=== PATIENT | male | born 1940 | race Caucasian/White ===

== ENCOUNTER 2018-09-16 13:14 | Inpatient (IN) | payer OTHER ==
[~2018-09-16] VITALS: Ht 175.3 cm; Wt 55.8 kg
[2018-09-16] VITALS (26 sets, daily range): BP systolic 90–117; BP diastolic 57–72
[2018-09-16 13:33] LABS: BE(vivo) 7.9 mmol/L (-2 to +3); HCO3 30.7 mmol/L (22.0-26.0); PCO2 36.7 mmHg (35.0-45.0); PO2 57.9 mmHg (80.0-100.0); pH 7.541 (7.360-7.450); sO2 93.1 % (92.0-98.0)
[2018-09-16] MEDS ORDERED: ALBUTEROL2.5 MG/31 INH (13:51)
[2018-09-16] MEDS ORDERED: AMARYL2 MG PO (13:52)
[2018-09-16] MEDS ORDERED: TYLENOL EXTRA500 MG PO (13:52)
[2018-09-16] MEDS ORDERED: GLUCAGON HCL1 MG IM (13:53)
[2018-09-16 13:55] LABS: ABSOLUTE NEUTROPHILS 13.2 thou/uL (1.4-8.2); BASOPHILS 0.5 % (0.0-2.0); HEMATOCRIT 37.6 % (42.0-52.0); HEMOGLOBIN 11.8 gm/dL (14.0-18.0); LYMPHOCYTES 4.4 % (24.0-44.0); MCH 26.1 pg (26.0-34.0); MCHC 31.5 g/dL (28.0-37.0); MCV 82.7 fL (80.0-100.0); MONOCYTES 5.8 % (1.0-8.0); POLYS 89.3 % (36.0-66.0); RBC 4.54 mil/uL (4.50-6.00); RDW 16.1 % (10.5-14.5); WBC 14.8 thou/uL (4.0-11.0)
[2018-09-16 13:57] LABS: CALCIUM 8.6 mg/dL (8.5-10.1); CREATININE 1.4 mg/dL (0.7-1.3); POTASSIUM 3.1 mmol/L (3.5-5.1)
[2018-09-16 14:03] LABS: ALBUMIN 1.7 g/dL (3.4-5.0); TOTAL BILIRUBIN 0.4 mg/dL (<0.1-1.0); TOTAL PROTEIN 6.7 g/dL (6.4-8.2)
[2018-09-16 14:35] LABS: DIRECT BILIRUBIN 0.2 mg/dL (<0.1-0.3); LIPASE 484 U/L (73-393); TROPONIN-I <0.06 ng/mL (<0.06)
[2018-09-16 14:36] LABS: PLATELET COUNT 164 thou/uL (150-400)
[2018-09-16 14:37] LABS: APTT 32.8 Seconds (24.5-32.8); INR 1.3; PROTIME 13.5 Seconds (9.3-11.4)
[2018-09-16 14:48] LABS: URINE BILIRUBIN NEGATIVE (Negative); URINE BLOOD NEGATIVE (Negative); URINE CLARITY CLEAR; URINE COLOR YELLOW; URINE GLUCOSE-RANDOM* NEGATIVE (Negative); URINE KETONES TRACE (Negative); URINE LEUKOCYTES NEGATIVE (Negative); URINE NITRITE NEGATIVE (Negative); URINE PROTEIN (DIPSTICK) TRACE (Negative); URINE SPECIFIC GRAVITY >= 1.030 (1.005-1.035)
[2018-09-16 15:42] LABS: BE(vivo) 5.4 mmol/L (-2 to +3); HCO3 29.8 mmol/L (22.0-26.0); PCO2 42.8 mmHg (35.0-45.0); PO2 269.8 mmHg (80.0-100.0); sO2 99.7 % (92.0-98.0)
--- NOTE | 2018-09-16 16:19 | NUR ---
SPOKE WITH JANAE SHAVER., GUARDIAN OF PT, THIS NURSE AND DAVID POLLARD CONSENT TO TREAT
--- NOTE | 2018-09-16 18:00 | NUR ---
PT ADMITTED FROM ED SEPSIS PROTOCOL. LARGE BROWN STOOL CDIFF SEND BATH GIVEN. MRSA SENT . IVS RESTARTED. REPORT GIVEN TO ON COMING SHIFT.
--- NOTE | 2018-09-16 19:51 | NUR ---
CONSULTED TO PLACE A CENTRAL LINE FOR A PATIENT IN ICU ADMITTING WITH SEPSIS. ORDER AND CONSENT NOTED. PATIENT IS UNRESPOSIVE SO LETICIA GAVE CONSENT FOR PROCEDURE. THE RIGHT JUGULAR WAS WIDLEY PATENT. A #6F TRIPLE LUMEN JACC CENTRAL LINE WAS PLACED PER HOSPITAL POLICY AFTER A BEDSIDE TIMEOUT WAS COMPLETED. LINE WAS 25CM ADVANCED WITHOUT DIFFICULTY. A STAT CHEST XRAY WAS ORDERED FOR CONFIRMATION
[2018-09-16 20:37] LABS: CALCIUM 8.2 mg/dL (8.5-10.1); CREATININE 1.3 mg/dL (0.7-1.3); POTASSIUM 3.2 mmol/L (3.5-5.1)
[2018-09-17] VITALS (34 sets, daily range): BP systolic 94–109; BP diastolic 51–63
[2018-09-17 00:34] LABS: CALCIUM 7.7 mg/dL (8.5-10.1); POTASSIUM 3.2 mmol/L (3.5-5.1)
[2018-09-17 05:17] LABS: ABSOLUTE NEUTROPHILS 9.4 thou/uL (1.4-8.2); BASOPHILS 0.5 % (0.0-2.0); EOSINOPHILS 0.1 % (0.0-3.0); HEMATOCRIT 28.9 % (42.0-52.0); HEMOGLOBIN 9.3 gm/dL (14.0-18.0); LYMPHOCYTES 8.2 % (24.0-44.0); MCH 26.7 pg (26.0-34.0); MCV 83.2 fL (80.0-100.0); MONOCYTES 5.1 % (1.0-8.0); PLATELET COUNT 124 thou/uL (150-400); POLYS 86.1 % (36.0-66.0); RBC 3.47 mil/uL (4.50-6.00); RDW 15.9 % (10.5-14.5); WBC 10.9 thou/uL (4.0-11.0)
[2018-09-17 05:30] LABS: BE(vivo) 4.4 mmol/L (-2 to +3); HCO3 29.5 mmol/L (22.0-26.0); PCO2 45.8 mmHg (35.0-45.0); PO2 95.6 mmHg (80.0-100.0); pH 7.427 (7.360-7.450); sO2 97.4 % (92.0-98.0)
[2018-09-17 05:46] LABS: CALCIUM 7.8 mg/dL (8.5-10.1); CREATININE 0.9 mg/dL (0.7-1.3); POTASSIUM 3.4 mmol/L (3.5-5.1)
--- NOTE | 2018-09-17 06:14 | NUR ---
ASSUMED CARE @ 1900 09/16/18, PT ASSESSMENTS AND VSS COMPLETE PER ICU PROTOCOL. PT NOT ABLE TO FOLLOW COMMANDS, PT INITIAL GCS WAS 4, MTN CALLED, MTN # [id number], AT LAST ASSESSMENT, PT ABLE TO FLEX FROM PAIN, PT MOVING FEET BUT NOT TO COMMAND, BOTH EYES DEVIATE TO THE RIGHT CORNERS OF THE EYE SOCKETS. GAG REFLEX, CORNEAL REFLEX AND COUGH PRESENT. PT BP SOFT BUT STABLE, TEMP LOW @ 95.7, WARMING BLANKET IN PLACE, PRESENT TEMP 96.6, PT SR-ST ON THE MONITOR. PEG IN PLACE, BS HIGH MOST OF THE NIGHT, RN HESITANT TO START INSULIN DRIP DUE TO HYPOKALEMIA, K WAS 3.2 INITIALLY, CHAS CALLED TO REPLACE K, NEW ORDERS RECIEVED. HERNANDEZ IN PLACE, PT MAKING 30-35ML/HR. SACRAL ULCER PRESENT, PICTURE TAKEN, WOUND CARE CONSULT PLACED. PLAN OF CARE- CONT TO MONITOR.
--- NOTE | 2018-09-17 09:52 | NUR ---
When ready to resume enteral nutrition, recommend glucerna 1.2 at goal of 60ml/hr
--- NOTE | 2018-09-17 14:20 | NUR ---
DISCHARGE PLANNING. FDC CARE PLACEMENT NEEDED AT DISCHARGE. PER PATIENTS PUBLIC FLY MAKER, JANAE SHAVER, REFERRAL FOR LTC PLACEMENT TO BE FAXED TO [facility] IN [place], [place]. CALL PLACED TO [facility] ADMISSIONS. SPOKE WITH [facility] TO DISCUSS REFERRAL AND PATIENTS DISCHARGE NEEDS. [facility] CONFIRMS THAT THEY DO ACCEPT TRACH PATIENTS. REFERRAL FAXED TO [facility], VERIFIED RECEIVED. [facility] TO REVIEW AND CONTACT CM ONCE COMPLETE. UNIT CM/SW AWARE. FOLLOWING TO ASSIST WITH DISCHARGE NEEDS. [facility] CONTACT NUMBER IS [phone] FAX [phone]
--- NOTE | 2018-09-17 15:41 | NUR ---
INITIAL ASSESSMENT: Received consult due to pt not having a support system. DANIEL reviewed chart and spoke with nursing and attending physician. Pt was admitted from [facility] due to aspiration pneumonia/sepsis. Pt is currently on the ventilator. Receiving IV abx: vanco/zosyn. Pt unable to communicate. Pt is a mckeon of the state through [facility] Public Cnc Machine Programmer's office. DANIEL spoke with Trav Oliva, telephonic case manager with the [place] office to provide update. Trav was aware of pt's admission. Per Trav, pt has been to [facility] for about a week. Prior to [facility], he was at [facility]. Pt with trach in place due to chronic respiratory failure. Pt also has peg tube in place. Trav requests referral to be sent to [facility] in [place]--[address] [place] [phone] ). corporate event planner faxed referral and confirmed they are able to accept pts with trachs. Will send updates to [facility] on Thursday. DANIEL requested guardianship ppwk to be faxed from [place] office to place on pt's chart. DANIEL updated [facility] liaison. DANIEL is following to assist as needed with discharge planning.
--- NOTE | 2018-09-17 17:44 | NUR ---
WOUND CONSULT: PT. WAS SEEN TODAY BY DR. MCELROY AND MYSELF. PT. HAS MULTIPLE WOUNDS AT THIS TIME. SACRUM-STAGE 3 RIGHT HEEL-STAGE 3 LEFT HEEL-UNSTAGEABLE RIGHT HIP-DEEP TISSUE INJURY RECOMMENDATIONS: CONTINUE WITH CURRENT PLAN OF CARE. PT. AND STAFF NURSE WERE INSTRUCTED ON PLAN OF CARE.
--- NOTE | 2018-09-17 19:44 | NUR ---
end of shift note. pt improving neurologically. VSS. wound care done. mod amt of secretions. Did not tolorate SIMV
[2018-09-18] VITALS (24 sets, daily range): BP systolic 114–134; BP diastolic 48–89
[2018-09-18 05:32] LABS: BE(vivo) 1.4 mmol/L (-2 to +3); HCO3 26.2 mmol/L (22.0-26.0); PCO2 42.3 mmHg (35.0-45.0); PO2 89.5 mmHg (80.0-100.0); sO2 96.9 % (92.0-98.0)
[2018-09-18 06:22] LABS: ABSOLUTE NEUTROPHILS 7.4 thou/uL (1.4-8.2); BASOPHILS 0.3 % (0.0-2.0); EOSINOPHILS 0.2 % (0.0-3.0); HEMATOCRIT 27.4 % (42.0-52.0); HEMOGLOBIN 8.6 gm/dL (14.0-18.0); MCH 26.4 pg (26.0-34.0); MCHC 31.3 g/dL (28.0-37.0); MCV 84.5 fL (80.0-100.0); MONOCYTES 4.1 % (1.0-8.0); PLATELET COUNT 125 thou/uL (150-400); POLYS 86.4 % (36.0-66.0); RBC 3.24 mil/uL (4.50-6.00); RDW 15.9 % (10.5-14.5); WBC 8.6 thou/uL (4.0-11.0)
[2018-09-18 06:27] LABS: CALCIUM 8.1 mg/dL (8.5-10.1); CREATININE 0.7 mg/dL (0.7-1.3)
[2018-09-18 06:33] LABS: POTASSIUM 2.8 mmol/L (3.5-5.1)
[2018-09-18 06:59] LABS: LARGE PLATELETS OCCASIONAL
--- NOTE | 2018-09-18 07:00 | NUR ---
No significant changes observed through the night. VS stable and SpO2 adequate on current vent settings. PRN oxycodones given for increased restlessness and occasional grimacing with desired effect achieved. Urine output marginal for shift. Am lab and ABG results noted, continue with POC.
[2018-09-18 09:13] LABS: BE(vivo) 3.4 mmol/L (-2 to +3); HCO3 28.3 mmol/L (22.0-26.0); PCO2 45.1 mmHg (35.0-45.0); PO2 86.1 mmHg (80.0-100.0); pH 7.416 (7.360-7.450); sO2 96.6 % (92.0-98.0)
[2018-09-18 12:16] LABS: BE(vivo) -0.5 mmol/L (-2 to +3); PCO2 38.6 mmHg (35.0-45.0); PO2 104.6 mmHg (80.0-100.0); pH 7.411 (7.360-7.450); sO2 97.9 % (92.0-98.0)
--- NOTE | 2018-09-18 17:51 | NUR ---
PT REMAINS UNCOMMUNICATIVE AND NO FOLLOW OF COMMANDS - VSS - TOLERATING BEING OFF VENTILATOR /S S/S OF DISTRESS
--- NOTE | 2018-09-18 18:21 | EKG ---
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 : 1940 Requested By: Nicola Bryan Order Number: [id number] MD: Justen Mckeon Measurements Intervals [place] Rate: 127 P: -46 NC: 102 QRS: -46 QRSD: 79 T: 89 QT: 400 QTc: 582 Interpretive Statements Sinus or ectopic atrial tachycardia Inferior infarct, old Nonspecific ST-T wave changes Voltage criteria for LVH No previous ECG available for comparison Electronically Signed On 09-18-2018 18:20:50 CDT by Justen Mckeon [email or web address] ��������������������������������������������� <ELECTRONICALLY SIGNED> ���������������������������������������� By: Justen Mckeon MD ��������������������������������������������� 09/18/18 1820 132 132 Justen Mckeon MD /EPI
[2018-09-19] VITALS (24 sets, daily range): BP systolic 113–162; BP diastolic 65–99
[2018-09-19 04:43] LABS: ABSOLUTE NEUTROPHILS 6.4 thou/uL (1.4-8.2); BASOPHILS 0.7 % (0.0-2.0); EOSINOPHILS 0.7 % (0.0-3.0); HEMATOCRIT 28.5 % (42.0-52.0); HEMOGLOBIN 8.9 gm/dL (14.0-18.0); LYMPHOCYTES 10.9 % (24.0-44.0); MCH 26.2 pg (26.0-34.0); MCHC 31.3 g/dL (28.0-37.0); MCV 83.7 fL (80.0-100.0); MONOCYTES 4.9 % (1.0-8.0); PLATELET COUNT 156 thou/uL (150-400); POLYS 82.8 % (36.0-66.0); RBC 3.41 mil/uL (4.50-6.00); RDW 16.1 % (10.5-14.5); WBC 7.7 thou/uL (4.0-11.0)
[2018-09-19 05:06] LABS: CALCIUM 7.9 mg/dL (8.5-10.1); CREATININE 0.6 mg/dL (0.7-1.3)
--- NOTE | 2018-09-19 05:11 | NUR ---
Patient making progress towards outcome goals. Oxygenation optimal with 35% oxygen per trach shield. Coughing up with good effort thick white to pale yellow secretions. Does requires tracheal suctioning about every 2-3 hours. Low grade temp 99 ax. IVFluids infusing. Good urine output. Brown liquid stool from fecal management system. Lateral bed rotation on.
--- NOTE | 2018-09-19 06:17 | NUR ---
K 3.o, replacement in progress per protocol.
--- NOTE | 2018-09-19 12:09 | NUR ---
REMAINS NON COMMUNICATIVE. TURNED EVERY 2 HOURS. HERNANDEZ TO DD CLEAR YELLOW URINE OUT. FECAL MANAGEMENT SYSTEM WITH BROWN LIQUID STOOL. TUBE FEEDING STARTED VIA PEG AT 20CC HR WITH A GOAL RATE OF 60. NO RESIDUAL AT START OF TF. LEFT TRIPLE LUMEN IJ INTACT. O2 AT 35% TRACH SHIELD. SUCTIONED EVERY TWO HOURS WITH MOD AMT FROTHY WHITE SPUTUM GOOD COUGH EFFORT.
[2018-09-19 23:42] LABS: MAGNESIUM 1.6 mg/dL (1.8-2.4)
[2018-09-19 23:48] LABS: POTASSIUM 2.9 mmol/L (3.5-5.1)
[2018-09-20] VITALS (12 sets, daily range): BP systolic 125–159; BP diastolic 70–94
--- NOTE | 2018-09-20 06:00 | NUR ---
PT REMAINS TRACHED AND NOVERBAL. VSS SINUS RHYTHM. SUCTIONED FOR A MOD AMT THICK BEIGE SPUTUM. DRESSINGS INTACT. BATHED. WORKING TO GET PT TX TO [facility] THIS WEEK. BATHED. REPOSITIONED. WILL CONT TO MONITOR.
[2018-09-20 06:15] LABS: HEMATOCRIT 29.3 % (42.0-52.0); HEMOGLOBIN 9.4 gm/dL (14.0-18.0); MCH 26.1 pg (26.0-34.0); MCHC 32.1 g/dL (28.0-37.0); MCV 81.3 fL (80.0-100.0); RBC 3.61 mil/uL (4.50-6.00); RDW 16.4 % (10.5-14.5); WBC 5.6 thou/uL (4.0-11.0)
[2018-09-20 06:26] LABS: CALCIUM 8.1 mg/dL (8.5-10.1); CREATININE 0.6 mg/dL (0.7-1.3); POTASSIUM 3.1 mmol/L (3.5-5.1)
--- NOTE | 2018-09-20 10:31 | NUR ---
Nutrition: If able to D/C IVFs rec administer Maximus BID in 240 mL H20 flushes to assist with wound healing needs.
--- NOTE | 2018-09-20 10:38 | NUR ---
DANIEL reviewed chart and spoke with attending physician. Pt is off the ventilator and tolerating trach shield. Pt is on IV abx: zosyn due to positive blood cultures. DANIEL received call from Alina ([phone]) at [facility] requesting clinical updates. DANIEL faxed updates from the weekend. DANIEL updated Trav Oliva at [facility] office. DANIEL is following to assist as needed with discharge planning.
--- NOTE | 2018-09-20 12:04 | HC ---
[facility] [place] [address] CONSULTATION Name: STARR SHARP Room #: [facility] IN M.R.#: [id number] Admission: 09/16/18 ������������������ Attend Phys: Kye Stevenson MD Discharge: ������������������ Date of : 40 Report #: [id number] THIS REPORT FOR: //name// CC: Kye Hill Akkulugari DATE OF SERVICE: 09/17/2018 INFECTIOUS DISEASES CONSULTATION REASON FOR CONSULTATION: Evaluation concerning septic shock and pneumonia. HISTORY OF PRESENT ILLNESS: The patient is a 78-year-old [facility]p resident, who is in a chronic vegetative state, who presents to the Emergency Room with nausea, vomiting, coffee-ground emesis and respiratory failure. He has a longstanding tracheostomy, was intubated and he was placed on the ventilator. He has had a moderate amount of tracheal secretions. He now has an indwelling Blanco catheter. He was placed in the Intensive Care Unit. He is on [employer] throughout the night. He received several liters of IV fluids. He has decreased urine output. Right IJ catheter was placed. He does move some of his extremities spontaneously, but not to command. He was unable to give any further details. He was incontinent of liquid stool. He now has a rectal tube in place. He had pressure wounds to his coccyx and to his right hip greater trochanter region. He had a PEG tube. REVIEW OF SYSTEMS: Ten-point review of systems unable to obtain because of the patient's condition. ALLERGIES: None known. MEDICATIONS: Included vancomycin, Zosyn, Levaquin in addition to those as noted on his MAR. Unclear as to his past medical history. He was on glimepiride, so he has likely got some diabetic history. SOCIAL HISTORY: He is a [facility] resident. Unclear if he has smoked or drank. Unclear why he has a tracheostomy. PHYSICAL EXAMINATION: VITAL SIGNS: Currently afebrile with temperature 97.1, heart rate 106, respiratory rate 27, blood pressure 99/51. He is on 30% FiO2 to his tracheostomy. GENERAL: He was thin stature. He was markedly debilitated. He was unresponsive to verbal or painful stimuli. HEENT: His eyes were deviated to the right with nystagmus present. He had [facility] [address] [place] [address] CONSULTATION Name: STARR SHARP Room #: [address] [place] [address] [place] .R.#: [id number] Admission: 09/16/18 ������������������ Attend Phys: Kye Stevenson MD Discharge: ������������������ Date of : 40 Report #: [id number] cataracts. Sclerae nonicteric. Mouth without lesion. Tracheostomy without drainage or erythema. Right IJ catheter in place with no erythema. SKIN: With unstageable wounds to his coccyx and his right greater trochanter. There was no fluctuance. LUNGS: Were coarse, mostly on the right side. HEART: Regular without murmur, gallop or rub. He was tachycardic. ABDOMEN: Soft, did not appreciate any masses or hepatosplenomegaly. His PEG site was without drainage or erythema. GENITOURINARY: External genitalia without mass. He had indwelling Blanco catheter. Rectal tube in place with liquid stool present. Some leakage of stool around the tubing. EXTREMITIES: Without cyanosis or clubbing. No peripheral edema. He had increased muscle tone throughout. Was able to move all of his extremities. NEUROLOGIC: Cranial nerves unable to fully assess. PSYCHIATRIC: Unable to assess mood. LABORATORY STUDIES: C. diff PCR negative. MRSA screen negative. Blood cultures are negative to date. Chest x-ray with right lower lobe, middle lobe atelectasis, infiltrate with associated effusion. Lactate 1.1. ABG on 40% showed a pO2 of 95, pCO2 of 45, pH 7.4, bicarbonate 29. Sodium 143, potassium 3.2, bicarbonate 33, creatinine 1. Procalcitonin 3.3. Urinalysis unremarkable. Hemoglobin 11.8, platelet count 164,000, white count 14.8 with 89% neutrophils. Liver function test normal. Lipase 484. Troponin negative. IMPRESSION: 1. A 78-year-old with right lower lobe pneumonia, respiratory failure, severe sepsis, coffee-ground emesis with only mild anemia. I am suspecting aspiration pneumonia, unclear why he has a tracheostomy. Likely, he has a component of chronic obstructive pulmonary disease. I did not see any evidence of mass lesion on his chest x-ray. 2. Acute kidney injury, improved. 3. Encephalopathy, chronic vegetative state. 4. Malnutrition. RECOMMENDATIONS: We will continue broad antibiotic coverage with Zosyn. The patient was MRSA screen negative. Control blood glucose levels. Nutritional support. The patient is a mckeon of the formerly [facility]. We will continue full support pending any further instruction. The patient is definitely at risk for further complications and will require ICU support. I have discussed in detail with nursing staff at the bedside. He will also continue with pressure relief regarding his sacrum and his right greater trochanter. ��������������������������������������������� <ELECTRONICALLY SIGNED> ���������������������������������������� By: Joaquin Rao MD ��������������������������������������������� 09/20/18 1204 [id number] [id number] Joaquin Rao MD /nt
--- NOTE | 2018-09-20 15:30 | NUR ---
VASCULAR ACCESS ROUNDING- PATIENT REMAINS IN ICU ON IV ANTIBIOTICS AND ELECTROLYTE REPLACEMENT. THIS PATIENT HAS POOR PERIPHERAL VASCULAR. WE WILL CONTINUE TO FOLLOW ID NOTES TO SEE HOW MUCH LONGER ANTIBIOTICS WILL BE NECESSARY
--- NOTE | 2018-09-20 17:02 | NUR ---
WOUND FOLLOW UP: PT. WAS SEEN TODAY BY DR. MCELROY AND MYSELF. PT. WOUNDS ARE STABLE. RECOMMENDATIONS: CONTINUE WITH CURRENT PLAN OF CARE. PT. AND STAFF NURSE WERE INSTRUCTED ON PLAN OF CARE.
--- NOTE | 2018-09-20 18:57 | NUR ---
1814 - REPORT CALLED TO ATUL DICKERSON - PT TRANSFERRED TO BED 416 WITH RN/TECH
--- NOTE | 2018-09-21 04:57 | NUR ---
PATIENT UNRESPONSIVE. HAS HERNANDEZ WITH YELLOW URINE WITH SEDIMENT. PEG TUBE WITH GLUCERNA 1.2 AT 60ML/HR WITH NO RESIDUAL. FECAL TUBE. IV IN R I. TRIPLE LUMEN. REMAIN IN ISOLATION FOR MRSA IN SPUTUM.
[2018-09-21 05:33] VITALS: BP 159/80
[2018-09-21 08:15] VITALS: BP 156/90
--- NOTE | 2018-09-21 09:50 | NUR ---
DANIEL reviewed chart and spoke with nursing. Pt was transferred to from ICU and is progressing towards goals for discharge. SW awaiting call back from [facility] regarding referral to see if they are able to accept pt. DANIEL discussed with Trav Oliva with [facility] office, who states SW should hear back from Alina at [facility]. Should [facility] not be able to accept pt, referral can be sent to [facility] in [place]. Pt can return to [facility] if these facilities are unable to accept. habitat conservation planner to follow up with [facility]. DANIEL is following to assist as needed with discharge planning.
--- NOTE | 2018-09-21 10:09 | NUR ---
car rental sales assistant called Alina/young at [facility] in [facility] regarding patient who will be ready to discharge today. Alina confirmed they received faxed updates sent yesterday and she will let us know in about an hour or so if they can accept patient. Alina asked if patient will need to be in a locked down unit, he will not as he is not able to ambulate.
--- NOTE | 2018-09-21 10:19 | NUR ---
S/W JANAE SHAVER IN PUBLIC ADM. OFFICE AND COMPLETED REQUEST FOR DNR PAPERWORK. FAXED THIS TO PUBLIC ADM OFFICE FOR JANAE TO REVIEW AND AWAITING RESPONSE BACK.
--- NOTE | 2018-09-21 13:41 | NUR ---
ASSUMED CARE AT 0700, SHIFT ASSESSMENT DONE, MEDS GIVEN VIA PEG TUBE. REMAINS UNRESPONSIVE, ON TRACHE. PEG TUBE FEEDING. GETTING FLUIDS AND IV ANTIBIOTICS. Q2 TURN DIRECTED, HERNANDEZ AND FECAL MANAGEMENT SYSTEM IN PLACE. REMAINS NPO. WILL CONTINUE TO ASSESS AND ASSIST WITH ADLs NEEDED.
[2018-09-21 14:00] VITALS: BP 148/80
--- NOTE | 2018-09-21 14:52 | NUR ---
PATIENT REMAINS UNRESPONSIVE AND OPENS EYES SIMULTANEOUSLY. WOUND REMAINS COVERED. PT TURNED Q2H AND WEARS SCDs BILATERALLY DUE TO IMMOBILITY. PT RECEIVED A BREATHING TREATMENT AND WAS SUCTIONED THIS MORNING BUT CONTINUES TO SOUND CONGESTED. PT HAS A RECTAL TUBE THAT IS BECOMING INEFFECTIVE, LEADING TO EPISODES OF INCONTINENCE/LOSS OF BOWELS IN BED. SOCIAL WORK IS CURRENTLY TRYING TO FIND A FACILITY FOR THE PATIENT TO BE DISCHARGED TO.
--- NOTE | 2018-09-21 15:23 | NUR ---
I have reviewed and concur with student documentation.
--- NOTE | 2018-09-21 16:36 | NUR ---
WOUND FOLLOW UP: PT. WAS SEEN TODAY BY DR. MCELROY AND MYSELF. PT. WOUNDS ARE CLINICALLY BETTER AT THIS TIME. RECOMMENDATIONS: CONTINUE WITH CURRENT PLAN OF CARE. PT. AND STAFF NURSE WERE INSTRUCTED ON PLAN OF CARE.
[2018-09-21 17:41] VITALS: BP 161/75
--- NOTE | 2018-09-21 18:47 | NUR ---
RUNNING A TEMP, OXYCODONE WITH TYLENOL GIVEN. Q2 TURNS PERFORMED DIRECTED.
[2018-09-21 21:00] VITALS: BP 122/58
[2018-09-22 05:59] VITALS: BP 137/80
--- NOTE | 2018-09-22 07:41 | NUR ---
ASSUMED PT CARE 1899. PT NONVERBAL/NONRESPONSIVE. FECAL MANAGEMENT TUBE, FOLAEY, PEG TUBE IN PLACE. FEVER TREATED, SEE EMAR. TRACH IN PLACE. FREQUENT ROUNDING. CLOSLY MONITOREING VITAL SIGSN. REPORT GIVEN TO AM NURSE.
[2018-09-22 07:53] VITALS: BP 152/66
--- NOTE | 2018-09-22 08:04 | NUR ---
Tube feeding followup: BG are elevated possible with extra D5 fluids. Hypernatremia has resolved. Recommend discontinue D5 and start water flush of 240ml every 6hr. Add 1 packet natalya bid.
--- NOTE | 2018-09-22 10:03 | NUR ---
DANIEL reviewed chart. DANIEL followed up with [facility] Facility liaison, who will review clinical info and discuss with team. DANIEL received call from Jennifer at [facility] stating they would like updates. DANIEL informed Jennifer that pt is off the ventilator and on trach shield. traffic and transport planner faxed updates to [facility]. DANIEL updated Trav Oliva at [facility] [place] office. DANIEL is following to assist as needed with discharge planning.
[2018-09-22] MEDS ORDERED: DURAGESIC1 EAC4 TRANSDERM (11:18)
--- NOTE | 2018-09-22 11:41 | NUR ---
S/W JANAE SHAVER AND HE WILL FAX BACK DNR ORDER ONCE IT IS COMPLETED TODAY. DR GALVIN HERE THIS AM REQUESTING HOSPICE EVAL. JANAE SHAVER FROM PUBLIC ADM. OFFICE IN AGREEMENT TO THIS AND HE REQUESTS REFERRAL TO [facility].
--- NOTE | 2018-09-22 14:28 | HC ---
[facility] [place] [address] CONSULTATION Name: STARR SHARP Room #: 419-P [facility] IN M.R.#: [id number] Admission: 09/16/18 ������������������ Attend Phys: Kye Stevenson MD Discharge: ������������������ Date of : 40 Report #: [id number] THIS REPORT FOR: //name// CC: Kye Hill Akkulugari DATE OF SERVICE: 09/17/2018 CHIEF COMPLAINT: Multiple pressure ulcerations. HISTORY OF PRESENT ILLNESS: This is a 78-year-old male patient who was admitted to [facility] from a care facility with worsening shortness of breath. He was unable to maintain respiratory status, was intubated due to respiratory distress. He is sedated or had decreased level of responsiveness on the ventilator, not able to provide any information about himself. He has multiple pressure ulcerations for which I have been asked to see him. PAST MEDICAL HISTORY: Diabetes mellitus, aspiration pneumonia, respiratory failure, septic shock. ALLERGIES: None. MEDICATIONS: Albuterol, glimepiride, glucagon, acetaminophen. SOCIAL HISTORY: Negative for alcohol or tobacco use. FAMILY HISTORY: Unknown. REVIEW OF SYSTEMS: Unobtainable due to the patient's unresponsive state. PHYSICAL EXAMINATION: VITAL SIGNS: At this time include temperature 99.6, pulse 106, respiration 27, blood pressure 101/52. GENERAL: This is a chronically ill-appearing male patient who appears to be somnolent on a respirator. HEENT: Head normocephalic. Nose is clear. Throat demonstrates oral tracheal tube in place. LUNGS: Diminished. HEART: Regular. ABDOMEN: Soft. Bowel sounds present. EXTREMITIES: Demonstrates stage 3 pressure ulceration to the right heel, small amount of bleeding tissue. Some callus and eschar present. There is an unstageable pressure ulcer to the left heel with a mixture of thick callus and eschar present. Stage 3 pressure ulceration of the sacrum, which appears to be relatively superficial without evidence of infection. He has a deep tissue injury to his right hip. [facility] [address] [place] [address] CONSULTATION Name: ARONSTARR Room #: 419-[facility] IN M.R.#: [id number] Admission: 09/16/18 ������������������ Attend Phys: Kye Stevenson MD Discharge: ������������������ Date of : 40 Report #: [id number] NEUROLOGIC: The patient is somnolent and does not respond to verbal stimuli. LABORATORY DATA: Includes sodium 147, potassium 3.4, chloride 110, CO2 31, BUN 36, creatinine 0.9, glucose 142. Albumin is low at 1.7. White blood cell count is 10.9 with a hemoglobin of 9.3. CLINICAL IMPRESSION: 1. Stage 3 pressure ulceration of the right heel, unstageable pressure in the left heel, stage 3 pressure ulcer of the sacrum and deep tissue injury to the right hip. 2. Respiratory failure, requiring mechanical ventilation. 3. Diabetes mellitus. 4. Severe protein-calorie malnutrition with albumin 1.7. RECOMMENDATIONS: At this point in time, the patient would need to be placed on low air loss mattress and keep turning and repositioning, PRAFO boots to both lower extremities. ��������������������������������������������� <ELECTRONICALLY SIGNED> ���������������������������������������� By: Charly Pryor MD ��������������������������������������������� 09/22/18 1428 0857 0105 Charly Pryor MD /nt
--- NOTE | 2018-09-22 14:46 | NUR ---
WOUND FOLLOW UP: PT. WAS SEEN TODAY BY DR. MCELROY AND MYSELF. PT. WOUNDS ARE SHOWING SIGNS OF CLINICAL IMPROVEMENT. RECOMMENDATIONS: CONTINUE WITH CURRENT PLAN OF CARE. PT. AND STAFF NURSE WERE INSTRUCTED ON PLAN OF CARE.
[2018-09-22 16:38] VITALS: BP 131/64
[2018-09-22 19:20] VITALS: BP 115/65
--- NOTE | 2018-09-22 19:29 | NUR ---
Assumed pt care at 7am.Pt in bed sleeping on and off.Turned and repositioned q2h in bed for comfort.Dr Whelan here and new order noted.Pt now on hospice care [facility]qualitative field project manager called public legal office administrator for code status to be change to no code.Still waiting for the paperwork.Tube feeding continue with q4h water flushes. Adequate urine output noted per carter catheter.Report off to noc rn.
[2018-09-23 03:35] VITALS: BP 116/62
--- NOTE | 2018-09-23 03:44 | NUR ---
Assumed care of pt at 1900. Pt nonverbal. Q2h turn. Prefo boots in place. Trach in place. Breathing treatments and suction q4h. Tube feeding continuous. Blanco catheter in place. Fecal management system in place. Lung sounds coarse. Fall precautions in place. Will continue to monitor.
[2018-09-23 05:11] LABS: HEMATOCRIT 29.9 % (42.0-52.0); HEMOGLOBIN 9.5 gm/dL (14.0-18.0)
[2018-09-23 07:43] VITALS: BP 123/57
--- NOTE | 2018-09-23 11:20 | NUR ---
Assumed pt care at 7am.Assessment completed.vss.Pt appeared to be calm and tracts nurse movement with eyes.Complete bath given this am and repositioned q2h for comfort.Adequate urine output per carter cath and tube feeding infusing as order.Pt still waiting on time to be transfer to [facility] facility today. No distress s/s noted.Will continue to monitor.
--- NOTE | 2018-09-23 12:35 | NUR ---
DISCHARGE NOTE: SW reviewed chart and spoke with nursing and attending physician. Pt is medically stable for discharge to [facility] with [facility] today. DANIEL scanned and emailed paperwork to Trav Oliva at [facility] office, for inside/outside the hospital DNR status. Forms forwarded to legal guardian and signed. Forms sent back to SW. Attending physician signed outside the hospital DNR form. Paperwork faxed to [facility]. SW notified [place] liaison. All paperwork placed back on pt's chart. planner faxed discharge orders/summary to [place]. Ambulance scheduled for 1430 per hospice's request. SW provided update to Trav Oliva, who is agreeable with discharge plan. Hospice notified the facility of pt's discharge time. Discharge orders/summary faxed to [place] office. Chart copy updated. Nursing to call report. Fecal mgmt system to be discontinued prior to discharge. No additional SW needs identified at this time, but is available to assist should needs arise.
--- NOTE | 2018-09-23 14:01 | NUR ---
WOUND FOLLOW UP: PT. WAS SEEN TODAY BY DR. MCELROY AND MYSELF. PT. WOUNDS ARE RESPONDING WELL TO CURRENT THERAPY. RIGHT HIP IS ALMOST COMPLETLY RESOLVED. RECOMMENDATIONS: CONTINUE WITH CURRENT PLAN OF CARE. PT. AND STAFF NURSE WERE INSTRUCTED ON PLAN OF CARE.
--- NOTE | 2018-09-24 18:58 | HC ---
[facility] [place] [address] CONSULTATION Name: STARR SHARP Room #: 419-P [facility] IN M.R.#: [id number] Admission: 09/16/18 ������������������ Attend Phys: Kye Stevenson MD Discharge: 09/23/18 ������������������ Date of : 40 Report #: [id number] THIS REPORT FOR: //name// CC: Kye Rowellm Akkulugari DATE OF SERVICE: 09/16/2018 REFERRAL PHYSICIAN: Dr. Stevenson. REASON FOR REFERRAL: Pneumonia and sepsis. HISTORY OF PRESENT ILLNESS: The patient is a 78-year-old male who was brought to the ED with an apparent episode of coffee-ground emesis. He has been admitted for pneumonia with possible sepsis. A pulmonary critical care consultation was requested. History is limited. The patient does not have any prior medical records here. The patient is unresponsive at baseline. The patient has been a resident of [facility] for some time. He is a [facility] of the [facility]. He has a trach placed. PAST MEDICAL HISTORY: Otherwise unknown. ALLERGIES: No known allergies. MEDICATIONS: From the [facility] include DuoNeb, glyburide, Tylenol, glucagon. FAMILY HISTORY: Unknown. SOCIAL HISTORY: Unknown, though history suggests that he has never smoked or drank. REVIEW OF SYSTEMS: Deferred as the patient is unresponsive. PHYSICAL EXAMINATION: GENERAL: The patient is unresponsive. Eyes open. VITAL SIGNS: Temperature is 101.2 degrees Fahrenheit, pulse is 130, respiratory rate is 22, blood pressure 108/72 mmHg, saturation 97%. HEENT: Normocephalic, atraumatic. NECK: Status post trach. CHEST: Breath sounds are fair with bilateral crackles. No wheezes. CARDIOVASCULAR: Normal S1, S2. There are no murmurs or gallop. There is no JVD. There is no carotid bruit. Pulses are 2+/4+ bilaterally. [facility] [address] [place] [address] CONSULTATION Name: STARR SHARP Room #: 419-P [facility] IN [facility]#: [id number] Admission: 09/16/18 ������������������ Attend Phys: Kye Stevenson MD Discharge: 09/23/18 ������������������ Date of : 40 Report #: [id number] ABDOMEN: Soft, nontender, no organomegaly or masses felt. GENITOURINARY: Deferred. RECTAL: Deferred. EXTREMITIES: No edema, cyanosis or clubbing. NEUROLOGIC: Deferred. MUSCULOSKELETAL: Notable for moderate muscle atrophy. LABORATORY DATA: Chest x-ray shows a mild right lower lobe infiltrates, small pleural effusion is seen on the left. Increased gas pattern is noted in the large bowel. Procalcitonin level is 3.1. Lactic acid is 1.6. Sodium 144, potassium 3.1, chloride 102, CO2 is 32, BUN is 45, creatinine is 1.4. Liver enzymes are mildly abnormal. WBC 14,900, hemoglobin 11.8, platelets are normal, no evidence of bandemia. Arterial blood gas revealed pH 7.54, pCO2 of 36, pO2 of 57 on 50% FiO2. Albumin is 1.7. IMPRESSION: 1. Coffee-ground emesis, questionable gastrointestinal bleed. 2. Probable aspiration, right lower lobe. The patient has been mildly hypotensive. He has leukocytosis. Pneumonia is likely. 3. Suspect sepsis due to above. 4. Acute on chronic hypoxic respiratory failure. The patient has a chronic trach, is normally not on ventilator. He is currently doing better on mechanical ventilation with improved oxygenation. 5. Chronic trach. The reason of this is unclear. 6. Apparent history of diabetes. 7. Renal insufficiency, presumed acute due to severe sepsis, acute tubular necrosis. 8. Severe protein-calorie malnutrition. 9. Incomplete medical history. RECOMMENDATION: Agree with sepsis protocol, broad-spectrum antibiotics, wean O2 for saturation 90%. Broad cultures including sputum, blood and urine. Bronchodilator is being initiated. DVT and GI prophylaxis recommended. We would also recommend obtaining records from the facility. Would also engage social service/case management in this patient. Apparently, he is a [facility] of the [facility]. Overall, outlook appears to be quite poor with what appears to be cachexia, malnutrition. Medical directive should be addressed. Thank you for this consultation. ��������������������������������������������� <ELECTRONICALLY SIGNED> ���������������������������������������� By: Roger Ford MD ��������������������������������������������� 09/24/18 [id number] Roger Ford MD /nt
== END 2018-09-23 17:13 | disposition hospice, inpatient (51) | DRG 871 ==
LOC: ER 13:14 → EROBS 16:22 → ICU 16:22 → 4E 09-20 18:50
PROVIDERS: Emergency Medicine; Internal Medicine; Internal Medicine Gastroenterology; Internal Medicine Pulmonary Disease; Pediatrics; ADMIT Hospitalist
PROC: 5A1945Z Respiratory Ventilation, 24-96 Consecutive Hours (ICD-10-PCS; principal; 2018-09-16)
DX: A41.9 Sepsis, unspecified organism (principal); L89.613 Pressure ulcer of right heel, stage 3; L89.153 Pressure ulcer of sacral region, stage 3; J69.0 Pneumonitis due to inhalation of food and vomit; R65.21 Severe sepsis with septic shock; J96.21 Acute and chronic respiratory failure with hypoxia; E43 Unspecified severe protein-calorie malnutrition; N17.9 Acute kidney failure, unspecified; G93.40 Encephalopathy, unspecified; K94.23 Gastrostomy malfunction; D62 Acute posthemorrhagic anemia; E87.0 Hyperosmolality and hypernatremia; Z68.1 Body mass index [BMI] 19.9 or less, adult; L89.620 Pressure ulcer of left heel, unstageable; S70.01XA Contusion of right hip, initial encounter; R00.0 Tachycardia, unspecified; E11.22 Type 2 diabetes mellitus with diabetic chronic kidney disease; N18.9 Chronic kidney disease, unspecified; E87.6 Hypokalemia; Z66 Do not resuscitate; X58.XXXA Exposure to other specified factors, initial encounter; Y93.89 Activity, other specified; Y92.89 Other specified places as the place of occurrence of the external cause; Y99.8 Other external cause status
CPT/HCPCS: 10078; 10783